=== PATIENT | male | born 1940 ===

== ENCOUNTER → 2021-12-16 | Outpatient (CLI) | payer MEDICARE, OTHER ==
--- NOTE | 2021-12-16 15:41 | RAD ---
EXAM: BONE SCINTIGRAPHY. HISTORY: Right hip pain status post arthroplasty 2016. TECHNIQUE: Following the intravenous injection of 27 mCi of Tc-99m labeled methylene diphosphonate (M DP), delayed images of the lower hemibody and bilateral proximal femora were performed in anterior an d posterior projections. COMPARISON: Right hip radiograph 11/30/2021. FINDINGS: There is no significant radiotracer uptake in the area of the right hip arthroplasty. Photo penia is present in the region of the metallic right femoral head and acetabular cup components. Ther e is subtle activity in the region of the left greater trochanter and intense activity in the left mi dfoot. IMPRESSION: 1. No scintigraphic evidence of loosening in the right hip arthroplasty. 2. Intense radiotracer uptake in the left midfoot likely related to advanced degenerative change. Rec ommend correlation with symptoms and radiographs. Electronically signed by: Bryon Brenner MD (12/16/2021 3:38 PM) [id number]
== END ==
LOC: NM 07:54
PROVIDERS: ATTEND Orthopaedic Surgery
DX: M25.551 Pain in right hip (principal); Z96.641 Presence of right artificial hip joint
CPT/HCPCS: 78300; A9503